=== PATIENT | female | born 1995 ===

== ENCOUNTER 2020-08-15 13:42 | Outpatient (REF) | payer SELFPAY | END 2020-08-15 13:43 | disposition home or self-care (01) | LOC: HO.SCI 13:42 | DX: Z13.89 Encounter for screening for other disorder (principal) ==

== ENCOUNTER 2020-08-23 09:34 | Outpatient (REF) | payer MEDICAID, SELFPAY ==
--- NOTE | ~2020-08-23 | CT_ITS ---
EXAMINATION: CT HEAD WITHOUT CONTRAST CLINICAL INFORMATION: Dropped on head COMPARISON: None TECHNIQUE: Contiguous axial imaging was performed from the skull base to vertex without intravenous administration of contrast. This CT examination was performed using dose optimization techniques as appropriate, variously including the following: *Automated exposure control *Adjustment of mA and/or kV according to patient size (this includes techniques or standardized protocols for targeted exams where dose is matched to indication/reason for exam; i.e. extremities or head) *Use of iterative reconstruction technique DLP: 650 mGy-cm FINDINGS: There is no evidence of acute intracranial hemorrhage or territorial infarction. No abnormal mass effect or midline shift is seen. Thomas to white matter differentiation is well preserved. No extra-axial fluid collections are identified. The ventricles are normal in size. There is no abnormal attenuation within the brain parenchyma. The osseous structures and soft tissues are normal. The mastoid air cells and visualized portions of the paranasal sinuses are well aerated. CT/CT head/brain wo con IMPRESSION: No acute intracranial pathology.
== END 2020-08-23 09:35 | disposition home or self-care (01) ==
LOC: HO.CT 09:34
PROVIDERS: PCP Registered Nurse; Visit Provider Registered Nurse
DX: F07.81 Postconcussional syndrome (principal); S09.90XA Unspecified injury of head, initial encounter
CPT/HCPCS: 70450

== ENCOUNTER 2021-12-30 14:10 | Outpatient (REF) | payer MEDICAID, SELFPAY ==
--- NOTE | ~2021-12-30 | US_ITS ---
EXAMINATION: US DIAGNOSTIC ULTRASOUND BREAST, RIGHT CLINICAL INFORMATION: 26-year-old with palpable fullness lower outer right breast. No prior breast imaging. Family history breast cancer grandmother. COMPARISON: None. TECHNIQUE: Ultrasound right breast is targeted to the area of clinical concern using grayscale imaging and color Doppler without and with harmonics. Patient is able to point to area of concern at time of imaging. FINDINGS: The palpable area corresponds to a complicated cyst 8:00 position 7 cm from nipple measuring 0.9 x 0.5 cm. There is fine internal septation. Some color flow is present at the periphery of the septation. There is no intracystic nodule or solid component. Margins are smooth. There is increased through-transmission of sound. Results are discussed with the patient at time of visit. Given the peripheral color flow in the otherwise benign internal septation, short interval six-month follow-up right breast ultrasound is recommended. US/US breast RT limited IMPRESSION: Mildly complicated cyst 8:00 position under 1 cm. ASSESSMENT: BI-RADS 3: Probably Benign RECOMMENDATION: Targeted right breast ultrasound in 6 months. This patient's information was entered into a reminder system with a target due date for their next breast imaging.
== END 2021-12-30 14:11 | disposition home or self-care (01) ==
LOC: HO.MAMMO 14:10
PROVIDERS: Visit Provider Nurse Practitioner Primary Care
DX: N63.13 Unspecified lump in the right breast, lower outer quadrant (principal)
CPT/HCPCS: 76642

== ENCOUNTER 2022-01-28 16:42 | Outpatient (REF) | payer MEDICAID, SELFPAY ==
--- NOTE | ~2022-01-28 | XR_ITS ---
EXAMINATION: XR CHEST CLINICAL INFORMATION: Productive cough and fever COMPARISON: None TECHNIQUE: 2 views of the chest were obtained. FINDINGS: No significant abnormality is noted involving the heart, lungs, mediastinum, bony thorax or soft tissues. XR/XR chest 2V IMPRESSION: No acute disease.
== END 2022-01-28 16:43 | disposition home or self-care (01) ==
LOC: HO.XRAY 16:42
PROVIDERS: Absent Provider Nurse Practitioner Primary Care; PCP Nurse Practitioner Primary Care; Visit Provider Emergency Medicine
DX: R50.9 Fever, unspecified (principal)
CPT/HCPCS: 71046

== ENCOUNTER 2022-02-06 02:04 | Emergency (ER) | payer MEDICAID, SELFPAY ==
[2022-02-06 02:16] VITALS: BP 100/61; PULSE 69; RESP 14; TEMP 36.7; O2SAT 96; BMI 20.7
== END 2022-02-06 02:45 | disposition left against medical advice (07) ==
PROVIDERS: Emergency Provider Emergency Medicine; PCP Nurse Practitioner Primary Care
DX: H57.12 Ocular pain, left eye (principal)
CPT/HCPCS: 99282

== ENCOUNTER 2022-02-16 15:44 | Emergency (ER) | payer MEDICAID, SELFPAY ==
[2022-02-16 15:48] VITALS: BP 107/54; PULSE 72; RESP 16; TEMP 36.7; O2SAT 98; BMI 21.5
--- NOTE | 2022-02-16 16:54 | ED.EYEPROB ---
HPI - Eye Problem General Chief complaint: Eye Problems Stated complaint: Styes in Both Eyes Time Seen by Provider: 02/16/22 16:41 Source: patient Mode of arrival: ambulatory Limitations: no limitations History of Present Illness HPI Narrative: patient presents emergency department for evaluation of bilateral upper eyelid stye ice. She states that it is not uncommon for her to get these. They have been present for approximately 2 weeks. One week ago she was evaluated at a walk-in clinic and was given a prescription for antibiotic eye ointment. However they continue to be present and uncomfortable. She states she has been using warm moist compresses but this has not helped. She would like and analysis to determine why she is developing styes. Review of Systems Review of Systems: Constitutional: No weight loss, fever, chills, weakness or fatigue. Skin: No rash or itching. Eye: Positive eyelid swelling, positive stye Cardiovascular: No chest pain Respiratory: No shortness of breath, cough or sputum production. Gastrointestinal: No nausea, vomiting or diarrhea. No abdominal pain Yes all other systems are reviewed and are negative PMFSH Past Medical History Attestation statement: The following information was validated with the patient. Source: old records reviewed Social History Social History Advance Directives: No Advance Directives Information Provided: No Physical Exam Vital Signs: Vital Signs: Last Vital Signs Temp 98.0 F 02/16/22 15:48 Pulse 72 02/16/22 15:48 Resp 16 02/16/22 15:48 BP 107/54 L 02/16/22 15:48 Pulse Ox 98 02/16/22 15:48 O2 Del Method 02/16/22 15:48 BMI result Body Mass Index 21.5 Appearance: Alert.?Oriented to person, place and time. No acute distress.?Normal affect. Eyes: Pupils equal, round and reactive to light. EOMi. No nystagmus. bilateral mechanical ptosis. Hordeolum With surrounding erythema to the bilateral upper eyelids? ENT: Pharynx normal.?? Neck: Normal inspection.? Neck supple.?? CVS: Heart sounds normal. Normal heart rate and rhythm.? Pulses normal.?? Respiratory: No respiratory distress.? Lung sounds clear to auscultation bilaterally?? Abdomen: Soft and non-tender. ?? Skin: Skin warm and dry.? Normal skin color.? ? Extremities: No lower extremity edema.? Neuro: Moves all extremities spontaneously. Sensation intact bilaterally. no motor deficits Ambulates with normal steady gait. Course Course Course Narrative: patient is a 26-year-old female with a past medical history of hordeolum, presenting for evaluation of persistent hordeola to bilateral upper eyelids. Physical exam not consistent with preseptal or orbital cellulitis. Extraocular movements are intact. Discussed with patient that there is no analysis as she is requesting that could be performed. Advised that individuals with underlying skin conditions such as rosacea, or seborrheic dermatitis may be more prone to them, additionally does wear eye makeup may be more prone to develop them, as the hordeola is essentially a clogged and inflammation of the gland. Advised to continue warm compresses and gentle massaging, lid scrubs, erythromycin ointment as she was prescribed. Reviewed worrisome signs and symptoms to return back to the emergency department for, including signs of preseptal or orbital cellulitis. Patient verbalized understanding, was advised to follow-up with her primary care provider/ warehouse order puller. Patient discharged home in stable condition. Discharge Plan Discharge Clinical Impression: Hordeolum Patient Disposition: Home, Self-Care Instructions: Nas (ED) Additional Instructions: As we discussed, the treatment of styes involves warm moist compresses, gentle massage of the lid, scrubbing the lid with mild soap and warm water. You can continue using the erythromycin eye ointment you were prescribed. As we discussed, these may take a few weeks to resolve. Please contact your primary care provider/ warehouse order puller to arrange for further evaluation/ treatment. Return to the emergency with any new or worsening symptoms or concerns such as fevers, chills, swelling that involves the tissue surrounding your eye, pain with movement of your eyes. Interventions: ED Discharge Assessment Last Done: 02/16/22 17:18 Discharge Date/Time: 02/16/22 17:18
--- NOTE | 2022-02-16 17:17 | PC.NURSE ---
pt left without taking discharge paperwork
== END 2022-02-16 17:18 | disposition home or self-care (01) ==
PROVIDERS: Emergency Provider Emergency Medicine; PCP Nurse Practitioner Primary Care
DX: H00.014 Hordeolum externum left upper eyelid (principal); H00.011 Hordeolum externum right upper eyelid
CPT/HCPCS: 99282

== ENCOUNTER 2022-04-17 18:14 | Emergency (ER) | payer MEDICAID, SELFPAY ==
[2022-04-17 19:02] VITALS: BP 94/57; PULSE 74; RESP 18; TEMP 36.3; O2SAT 96
== END 2022-04-17 22:37 | disposition left against medical advice (07) ==
PROVIDERS: Emergency Provider Emergency Medicine
DX: R51.9 Headache, unspecified (principal); M79.10 Myalgia, unspecified site
CPT/HCPCS: 99281

== ENCOUNTER 2022-11-04 22:01 | Emergency (ER) | payer MEDICAID, SELFPAY ==
--- NOTE | ~2022-11-04 | CT_ITS ---
EXAMINATION: CT ABDOMEN AND PELVIS WITHOUT CONTRAST CLINICAL INFORMATION: Right flank COMPARISON: None available. TECHNIQUE: Multidetector volumetric imaging was performed from the superior aspect of the liver through the pubic symphysis. Sagittal and coronal reformatted images were obtained on the technologist's workstation. This CT examination was performed using dose optimization techniques as appropriate, variously including the following: *Automated exposure control *Adjustment of mA and/or kV according to patient size (this includes techniques or standardized protocols for targeted exams where dose is matched to indication/reason for exam; i.e. extremities or head) *Use of iterative reconstruction technique DLP: 260 mGy-cm FINDINGS: LUNG BASES: The visualized lung bases are unremarkable. LIVER, GALLBLADDER, AND BILIARY TREE: The liver is normal in size, shape, and attenuation. No focal hepatic lesion or biliary ductal dilatation is present. Gallbladder unremarkable. PANCREAS: Unremarkable. SPLEEN: Unremarkable. ADRENAL GLANDS: Unremarkable. KIDNEYS AND URETERS: The kidneys are normal in size, shape, and attenuation. No hydronephrosis, hydroureter, or calculi seen. Mild right renal pelvic fullness. No perinephric abnormalities. BLADDER: Unremarkable. GASTROINTESTINAL TRACT: The small and large bowel are unremarkable. The appendix is not well seen due to posterior visceral fat and lack of intravenous contrast, however there is no evidence of appendicitis.. ABDOMINAL WALL: No significant hernia is appreciated. LYMPH NODES: Normal. VASCULAR: Unremarkable. PELVIC VISCERA: Uterus and adnexa unremarkable. OSSEOUS STRUCTURES: No acute or suspicious osseous abnormalities. CT/CT abdomen pelvis wo IV con IMPRESSION: * No urinary calculi or hydronephrosis. * Mild right renal pelvic fullness, nonspecific. Pyelitis/ureteritis could be considered. Please correlate with urinalysis. * No additional potential etiology for the patient's right flank pain is identified.
[2022-11-04 22:03] VITALS: BP 101/54; PULSE 80; RESP 18; TEMP 37.4; O2SAT 98; BMI 21.3
[2022-11-04 22:21] LABS: MANUAL DIFF FLAG NO
--- OUTSIDE RECORDS SUMMARY | 2022-11-04 22:22 | XMS_ITS | Continuity of Care Document ---
Author Name Unknown Organization [facility] Address [address] [place] [address]- Care Team Providers Care Tobacco Buyer Name Role Phone Tessa Pabon NP Primary Care Physician Encounter [facility] [place] Date(s): 04/14/22 - 05/14/22 [facility] [address] [place] [address]- Attending Physician: Admtr, Ar8 Admitting Physician: Admtr, Ar8 Referring Physician: Admtr, Ar8 Allergies, Adverse Reactions, Alerts No Known Allergies Social History Social History Type Response Smoking Status 5-9 cigarettes (betw een 1/4 to 1/2 pack)/day in last 30 days entered on: 04/14/22 Sex Patient Care team information Care Team Personnel Name: Tessa Pabon NP Position: S Outreach Member Role: PCP Address: Address: [address], [place] [address]-
--- OUTSIDE RECORDS SUMMARY | 2022-11-04 22:22 | XMS_ITS | Continuity of Care Document ---
Author Name Unknown Organization [facility] Address [address] [place] [address]- Care Team Providers Care Insurance Analyst Name Role Phone Cm SINGH, Tessa Sprague Primary Care Physician Encounter [facility] Date(s): 10/04/22 - 10/04/[address] [address]- Discharge Disposition: A-D/C Home Attending Physician: Baltazar Abdalla MD Admitting Physician: Baltazar Abdalla MD Referring Physician: Not on Staff, Referring MD Allergies, Adverse Reactions, Alerts No Known Allergies Medications predniSONE 20 mg oral tablet 2 tablet = 40 mg, By Mouth, Daily, for 5 days, # 10 tablet, 0 Refills, Acute 10/09/22 22:07:00 EDT,10/04/22 22:07:00 EDT, Tablet, [id number], Partial fill upon patient request if the prescription is for a schedule II opioid drug., 158, cm, 04... Start Date: 10/04/22 Stop Date: 10/09/22 Status: Ordered ZyrTEC 10 mg oral tablet 1 tablet = 10 mg, By Mouth, Daily, PRN Rash, # 14 tablet, 0 Refills, Maintenance, 10/04/22 22:07:00EDT, Tablet, [id number], Partial fill upon patient request if the prescription is for a schedule II opioid drug., 158, cm, 10/04/22 21:30:00 ED... Start Date: 10/04/22 Status: Ordered Problem List Condition Confirmation Course Effective Dates Status Health [facility] Informant Underweight Confirmed Active Vital Signs Most recent to oldest [Reference Range]: 1 2 3 Height 158 cm (10/04/22 10:15 PM) 158 cm (10/04/22 9:27 PM) Weight 46.1 kg (10/04/22 10:15 PM) 46.1 kg (10/04/22 9:27 PM) Oxygen Saturation [94-100 %] 96 % (10/04/22 10:15 PM) 80 % *L* (10/04/22 9:27 PM) 98 % (10/04/22 9:26 PM) Pulse Rate [55-90 bpm] 78 bpm (10/04/22 10:15 PM) 97 bpm *H* (10/04/22 9:27 PM) 80 bpm (10/04/22 9:26 PM) Body Mass Index [18.5-24.99 kg/m2] 18.47 kg/m2 *L* (10/04/22 10:15 PM) Blood Pressure [90-138/55-84 mm Hg] 102/57mm Hg (10/04/22 10:15 PM) 111/76mm Hg (10/04/22 9:27 PM) Respiratory Rate [16-30 br/min] 17 br/min (10/04/22 10:15 PM) 16 br/min (10/04/22 9:27 PM) 19 br/min (10/04/22 9:26 PM) Temperature [96.8-100.4 DegF] 97.3 DegF (10/04/22 9:27 PM) Mode of Delivery (Oxygen) Room air (10/04/22 10:15 PM) Room air (10/04/22 9:27 PM) Blood pressure sites Arm, left (10/04/22 10:15 PM) Temperature Route Temporal (10/04/22 9:27 PM) Dry Weight 46.1 kg (10/04/22 10:15 PM) 46.1 kg (10/04/22 9:27 PM) Social History Social History Type Response Smoking Status 5-9 cigarettes (betw een 1/4 to 1/2 pack)/day in last 30 days entered on: 04/14/22 Sex Note * Baltazar Abdalla MD: PERFORM, SIGN, VERIFY Event Display: Patient Education Handout Authored Date: * Baltazar Abdalla MD: PERFORM Event Display: Patient Education Leaflets Authored Date: General Allergic Reactions ?? [id number] General Allergic Reactions An allergic reaction is a set of symptoms caused by an allergen. An allergen is something that causes your immune system to react abnormally. It releases various chemicals. These include histamine. Histamine causes swelling and itching. An allergic reaction may affect the entire body. This is called a general allergic reaction.??Often symptoms affect only 1 part of the body. This is called a local allergic reaction. You are having an allergic reaction. Almost anything can cause one. Different people are allergic to different things. It's usually something that you ate or swallowed, came into contact with by getting or putting it on your skin or clothes, or something you breathed in the air. This can be very annoying and sometimes scary. Most people think of allergic reactions when they have a rash or itchy skin. Other symptoms can include: ??? Itching of the eyes, nose, and roof of the mouth ??? Runny or stuffy nose ??? Watery eyes?Sneezing or coughing? A??blocked feeling in the ear ??? Red, raised, itchy??rash called hives ??? Red and purple spots ??? Rash, redness, welts, blisters ??? Itching, burning, stinging, pain ???Dry, flaky, cracking, scaly skin Severe symptoms include: ??? Swelling of the face, lips, mouth, throat, or other parts of the body ??? Hoarse voice ??? Trouble swallowing, feeling like your throat is closing ??? Trouble breathing, wheezing ??? Nausea, vomiting, diarrhea, stomach cramps ??? Feeling faint or lightheaded, rapid heart rate Sometimes the cause of an allergic reaction may be obvious. But there are so many things that can cause a reaction that you may not be able to figure it out. The most important things to help find your allergen are to remember: ??? Where you were, such as in a forest, factory, grocery store, or paint store ??? When it started??? What you were doing at the time or just before that ??? What activities you were involved in ??? If you were exposed to anything new Below are some common causes of allergies. Some of these can cause severe general allergic reactions. Others can cause mild to moderate symptoms. But remember that almost anything can cause a reaction. You may not even be aware that you came into contact with one of these things: ??? Dust, mold, pollen ??? Plants (common ones are poison jw and poison oak, but there are many others)? Animals ??? Foods, such as shrimp, shellfish, peanuts, tree nuts, milk products, wheat, and eggs ??? Food colorings, flavorings, and additives ??? Insect bites or stings, such as bees, mosq uitoes,??fleas, and ticks ??? Medicines, such as??penicillin, sulfa medicines, aspirin, and ibuprofen. But any medicine can cause a reaction. ??? Jewelry,??such as nickel or gold. This can be new, orsomething you???ve worn for a while, including zippers and buttons. ??? Latex, such as in gloves, clothes, toys, balloons, or some tapes. Some people allergic to latex may also have problems with foods like bananas, avocados, kiwi, papaya, or chestnuts. ??? Lotions, perfumes, cosmetics, soaps, shampoos, skincare products, nail products ??? Chemicals or dyes in clothing, linen, concrete rubber, hair dyes, soaps, iodine Many viruses and common colds can cause a rash (such as hives) that is not an allergic reaction. Sometimes it's hard to tell the difference between allergies, sensitivity, or??an intolerance to something. This is especially true with food. Many things can cause diarrhea, vomiting, stomach cramps, and skin irritation. Home care The goal of treatment is to help relieve the symptoms and get you feeling better. The rash will usually fade over several days. But it can sometimes last a couple of weeks. Over the next couple of days, there may be times when it gets a little worse, and then better again. Here are some things to do: ??? If you know what you are allergic to, stay away from it. Future exposures may cause similar or sometimes worse symptoms. ??? Don't wear tight clothing and stay away from anything that heats up your skin, such as hot showers or baths, and direct sunlight. Heat will make itching worse. ??? An ice pack will relieve local areas of intense itching and redness. To make an ice pack, put ice cubes in a plastic bag that seals at the top. Wrap it in a thin, clean towel. Apply the ice pack for 5 to 10 minutes. Don???t put the ice directly on the skin because it can damage the skin. ??? Oral diphenhydramine is an [id number] antihistamine sold at pharmacies and grocery stores. Unless a prescription antihistamine was given, diphenhydramine may be used to reduce itching if large areas of theskin are involved.??It may make you sleepy. So be careful using it in the daytime or when going to school, working, or driving. Note: Don???t use??diphenhydramine??if you have glaucoma or if you havetrouble urinating because of an enlarged prostate. There are other antihistamines that won???t makeyou so sleepy. These are good choices for daytime use. Ask your healthcare provider or pharmacist for suggestions. ??? Don???t use??diphenhydramine??cream on your skin unless prescribed. It may causea worse reaction in some people. ??? To help prevent an infection, don't scratch the affected area.??Scratching??may make the reaction worse and??damage your skin. It can also lead to an infection. Always check the affected areas for signs of an infection. ??? Call your healthcare provider and ask what you can use to help decrease the itching. ??? To decrease your exposure to allergens, try the following: ?? o Use heat-steam to clean your home. o Use high-efficiency particulate (HEPA) vacuums and filters. o Stay away from food and pet triggers. o Kill any cockroaches and use pest control to keep infestations from happening again. o Clean your house often. ?? Follow-up care Follow up with your healthcare provider, or as advised. You may be referred to an pre sales technical engineer. If youhad a severe reaction today, or if you have had several mild to medium allergic reactions in the past, ask your provider about allergy testing. This can help you find out what you are allergic to. Ifyou had a severe reaction that included dizziness, fainting, or trouble breathing or swallowing, ask your provider about carrying auto-injectable epinephrine and wearing a medical alert bracelet or necklace. You can also ask if allergy immunotherapy (such as allergy shots) may be right for you. ?? Call 911 Call 911 right away if any of these occur: ??? Trouble breathing or swallowing, wheezing ??? Cool, moist, pale skin ??? Shortness of breath ??? Hoarse voice or trouble speaking ??? Confusion? Very drowsy or trouble awakening ??? Fainting or loss of consciousness ??? Rapid heart rate ??? Feeling of dizziness or weakness or a sudden drop in blood pressure ??? Feeling of doom ??? Feeling lightheaded ??? Severe nausea or vomiting,??or diarrhea ??? Seizure ??? Swelling in the face, eyelids, lips, mouth, throat, or tongue ??? Drooling ?? When to seek medical advice Call your healthcare provider or get medical care right away if any of these occur: ??? Spreading areas of itching, redness, or swelling ??? Nausea or stomach cramps or abdominal pain ??? Symptoms that continue, get worse, or happen more than once ??? Spreading areas of redness, swelling, or itching ??? Signs of infection at the affected site: o Spreading redness o Increased pain or swelling o Fluid or colored drainage from the site o Fever of 100.4??F (38??C) or higher, or as directed by your healthcare provider ?? Last Reviewed Date: 2021 ?? [id number] [employer]. All rights reserved. This information is not intended as a substitute for professional medical care. Always follow your healthcare professional's instructions. ?? Patient Care team information Care Team Personnel Name: Tessa Pabon NP Position: [facility] Outreach Member Role: PCP Address: Address: [address] [place] [id number]- Name: Tunde PINA, Garfield Yin Position: [facility] ED RN W/OE and Tasks Member Role: Patient Care Provider Name: Rm MORRISON, Baltazar Li Position: [facility] ED Medicine MD Member Role: Admitting Physician Address: Address: [address] [place] [id number]- Name: Sejal Dawn Position: [facility] ED TA [facility] Member Role: Postdoctoral Research Associate
[2022-11-04 22:29] LABS: Basophils Absolute Auto 0.1 X10*3/uL (0.0-0.2); Basophils Percent Auto 0.4 % (0-2); Eosinophils Absolute Auto 0.1 X10*3/uL (0.0-0.4); Eosinophils Percent Auto 0.6 % (0-4); Hemoglobin 12.2 g/dl (12.0-16.0); Imm Gran Abs Auto 0.04 X10*3/uL (0.00-0.03); Imm Gran Pct Auto 0.3 % (0.0-0.4); Lymphocytes Absolute Auto 0.9 X10*3/uL (1.2-4.9); Lymphocytes Percent Auto 6.5 % (20-40); Mean Corpuscular Hemoglobin 30.6 pg (27.0-33.0); Mean Corpuscular Volume 92.7 fL (80.0-98.0); Monocytes Absolute Auto 1.1 X10*3/uL (0.1-1.2); Monocytes Percent Auto 8.3 % (2-11); Neutrophils Absolute Auto 11.2 x10*3/uL (2.0-8.3); Neutrophils Percent Auto 83.9 % (45-73); Platelet Count 306 X10*3/uL (160-400); Red Blood Count 3.99 X10*6/uL (4.20-5.50); Red Cell Distribution Width 13.1 % (11.0-16.0); White Blood Count 13.4 X10*3/uL (4.8-10.8)
[2022-11-04 22:40] LABS: Alanine Aminotransferase 12 U/L (0-31); Albumin Level 4.7 g/dL (3.5-5.0); Alkaline Phosphatase 69 U/L (39-117); Anion Gap 13 (12-20); Aspartate Amino Transferase 22 U/L (5-31); Bilirubin Direct 0.2 mg/dL (0.0-0.5); Bilirubin Total 0.7 mg/dL (0.0-1.0); Blood Urea Nitrogen 8 mg/dL (9-16); Carbon Dioxide 26 mmol/L (22-29); Chloride 103 mmol/L (96-108); Creatinine Clr Calc Pharmacy 92.7; Estimated Glomerular Filt Rate > 60; Glucose Random 103 mg/dL (60-115); Lipase 37 U/L (8-78); Potassium 4.6 mmol/L (3.3-5.1); Sodium 137 mmol/L (135-145); Total Protein 7.4 g/dL (6.5-8.0)
[2022-11-04 23:33] LABS: Appearance Urine Clear; Color Urine Yellow; Glucose Urine UA Negative (Negative); Leukocyte Esterase Urine Small (1+) (Negative); Nitrite Urine Negative (Negative); PH >= 9.0 (5.0-9.0); Specific Gravity - Urine 1.015 (1.005-1.025); UMIC TRIGGER UACC YES; UPreg QC Valid YES; Urine Blood Trace (Negative); Urine Ketones Negative (Negative); Urine Pregnancy NEGATIVE (NEGATIVE); Urine Protein Trace mg/dL (Neg-Trace)
[2022-11-04 23:35] LABS: Bacteria Urine Trace (None Seen); Hyaline Casts Urine 0-2 /LPF (0-2); UACC Culture Trigger YES; WBC Urine 21-50 /HPF (0-5)
--- NOTE | 2022-11-04 23:59 | ED_ITS ---
HPI - General Adult General Chief complaint: Abdominal Pain Stated complaint: R side back pain, fever Time Seen by Provider: 11/04/22 23:50 Source: patient Mode of arrival: ambulatory Limitations: no limitations History of Present Illness HPI narrative: Patient comes to the emergency room complaining of 3 days of right-sided flank pain. Patient states that she has been having chills, nausea. Patient denies hematuria or dysuria Related Data Allergies Allergy/AdvReac Type Severity Reaction Status Date / Time No Known Allergies Allergy Verified 04/17/22 19:11 Review of Systems Review of Systems: Constitutional : No Weight loss, No Fever, No Chills, No Night Sweats, No Fatigue, No Malaise ENT/Mouth : No Hearing loss, No Ear Pain, No Nasal Congestion, No Sinus Pain, No Hoarseness, No sore throat, No Rhinorrhea, No Swallowing Difficulty Eyes: No Eye Pain, No Swelling, No Redness, No Foreign Body, No Discharge, No Vision Changes Cardiovascular : No Chest Pain, No SOB, No Dyspnea on Exertion, No Orthopnea, No Edema, No Palpitations Respiratory : No Cough, No Sputum, No Wheezing, No Smoke Exposure, No Dyspnea Gastrointestinal : No Nausea, No Vomiting, No Diarrhea, No Constipation, No abdominal Pain, No Hematochezia, No Melena Genitourinary : no irregular bleeding, No Dysuria, No Urinary Frequency, No Hematuria, No Urinary Incontinence, No Urgency, complaining of right-sided Flank Pain, No Urinary Flow Changes, No Hesitancy Musculoskeletal : No joint pain, No Myalgias, No Joint Swelling Skin : No Skin Lesions, No rash Neuro : No Weakness, No Numbness, No Paresthesias, No Loss of Consciousness, No Dizziness, No Headache Psych : No Anxiety/Panic, No Depression, No SI/HI/AH/VH, No Social Issues, Heme/Lymph: No Bruising, No Bleeding,No Lymphadenopathy Endocrine : No Polyuria, No Polydipsia, No Temperature Intolerance [facility] Social History Social History Alcohol intake: never Smoked in Last 30 Days: No Use of substances other than those prescribed or required for medical reasons: No Advance Directives: No Advance Directives Information Provided: Yes Patient : No Physical Exam ED Vital Signs: Vital Signs - 24 hr 11/04/22 22:03 11/05/22 00:07 Temperature 99.3 F 101.8 F H Pulse Rate 80 92 Respiratory Rate 18 18 Blood Pressure 101/54 L 124/63 Pulse Oximetry 98 99 Oxygen Delivery Method Room Air Room Air BMI result Body Mass Index 21.3 Const Other: Appearance: Alert. Oriented X3, seems uncomfortable Eyes: Pupils equal, round and reactive to light. ENT: Pharynx normal. Neck: Normal inspection. Neck supple. No lymph nodes noted. No crepitus CVS: Normal heart rate and rhythm. Pulses normal. Normal S1 and S2 Respiratory: No respiratory distress. Breath sounds normal. No Wheezing. No rales Abdomen: Soft and nontender. No rigidity. No distention. Positive CVA tenderness on the right Skin: Skin warm and dry. Normal skin color. Normal skin turgor. Extremities: No lower extremity edema. No Lacerations. No Rash Neuro: Oriented X 3. No motor deficit. No sensory deficit. Moving all extremities. No slurred speech. CN 2 through 12 grossly intact Psych: calm, cooperative, normal affect Medications Administered Discontinued Medications Generic Name Dose Route Start Last Admin Trade Name Freq PRN Reason Stop Dose Admin Ketorolac Tromethamine 60 mg 11/04/22 23:55 11/05/22 00:18 Ketorolac Tromethamine 60 Mg/2 Ml Vial IM 11/04/22 23:56 60 mg ONCE ONE Administration Levofloxacin 500 mg 11/04/22 23:55 11/05/22 00:19 Levofloxacin 500 Mg Tablet PO 11/04/22 23:56 500 mg ONCE ONE Administration Medical Decision Making Medical Decision Making MDM Narrative: -patient is brought blood cell count 13.4. BUN creatinine within normal limits, urinalysis positive for UTI. Patient does not have dysuria. We will obtain a CT scan to rule out ureterolithiasis. Patient was given IM Toradol and p.o. Levaquin -CT scan : Pyelonephritis, no stone -please see paper chart, we are on downtime Lab Data 11/04/22 22:16 11/04/22 22:16 Labs: Lab Results 11/04/22 11/04/22 11/04/22 Range/Units 22:16 22:16 23:24 WBC 13.4 H (4.8-10.8) X10*3/uL RBC 3.99 L (4.20-5.50) X10*6/uL Hgb 12.2 (12.0-16.0) g/dl Hct 37.0 (37.0-47.0) % MCV 92.7 (80.0-98.0) fL MCH 30.6 (27.0-33.0) pg MCHC 33.0 (31.0-35.0) g/dl RDW 13.1 (11.0-16.0) % Plt Count 306 (160-400) X10*3/uL MPV 10.0 (9.4-12.3) fL Immature Gran % (Auto) 0.3 (0.0-0.4) % Neut % (Auto) 83.9 H (45-73) % Lymph % (Auto) 6.5 L (20-40) % [place] % (Auto) 8.3 (2-11) % Eos % (Auto) 0.6 (0-4) % Baso % (Auto) 0.4 (0-2) % Lymph # (Auto) 0.9 L (1.2-4.9) X10*3/uL [place] # (Auto) 1.1 (0.1-1.2) X10*3/uL Eos # (Auto) 0.1 (0.0-0.4) X10*3/uL Baso # (Auto) 0.1 (0.0-0.2) X10*3/uL Abs Immat Gran (auto) 0.04 H (0.00-0.03) X10*3/uL Absolute Neuts (auto) 11.2 H (2.0-8.3) x10*3/uL Absolute Nucleated RBC 0.000 (0.0-0.012) X10*3/uL Nucleated RBC % (auto) 0.0 (0.0-0.2) /100WBC Sodium 137 (135-145) mmol/L Potassium 4.6 (3.3-5.1) mmol/L Chloride 103 (96-108) mmol/L Carbon Dioxide 26 (22-29) mmol/L Anion Gap 13 (12-20) BUN 8 L (9-16) mg/dL Creatinine 0.76 (0.5-1.4) mg/dL Estim Creat Clear Calc 92.7 Estimated GFR > 60 Random Glucose 103 (60-115) mg/dL Calcium 10.0 (8.4-10.2) mg/dL Total Bilirubin 0.7 (0.0-1.0) mg/dL Direct Bilirubin 0.2 (0.0-0.5) mg/dL AST 22 (5-31) U/L ALT 12 (0-31) U/L Alkaline Phosphatase 69 (39-117) U/L Total Protein 7.4 (6.5-8.0) g/dL Albumin 4.7 (3.5-5.0) g/dL Lipase 37 (8-78) U/L Urine Color Yellow Urine Appearance Clear Urine pH >= 9.0 (5.0-9.0) Ur Specific [place] 1.015 (1.005-1.025) Urine Protein Trace (Neg-Trace) mg/dL Urine Glucose (UA) Negative (Negative) mg/dL Urine Ketones Negative (Negative) mg/dL Urine Blood Trace H (Negative) Urine Nitrite Negative (Negative) Ur Leukocyte Esterase Small (1+) H (Negative) Urine RBC 6-10 H (0-2) /HPF Urine WBC 21-50 H (0-5) /HPF Ur Squamous Epith Cells 11-20 (0-2) /HPF Urine Bacteria Trace (None Seen) Hyaline Casts 0-2 (0-2) /LPF Urine Test (NEGATIVE) 11/04/22 Range/Units 23:24 WBC (4.8-10.8) X10*3/uL RBC (4.20-5.50) X10*6/uL Hgb (12.0-16.0) g/dl Hct (37.0-47.0) % MCV (80.0-98.0) fL MCH (27.0-33.0) pg MCHC (31.0-35.0) g/dl RDW (11.0-16.0) % Plt Count (160-400) X10*3/uL MPV (9.4-12.3) fL Immature Gran % (Auto) (0.0-0.4) % Neut % (Auto) (45-73) % Lymph % (Auto) (20-40) % [place] % (Auto) (2-11) % Eos % (Auto) (0-4) % Baso % (Auto) (0-2) % Lymph # (Auto) (1.2-4.9) X10*3/uL [place] # (Auto) (0.1-1.2) X10*3/uL Eos # (Auto) (0.0-0.4) X10*3/uL Baso # (Auto) (0.0-0.2) X10*3/uL Abs Immat Gran (auto) (0.00-0.03) X10*3/uL Absolute Neuts (auto) (2.0-8.3) x10*3/uL Absolute Nucleated RBC (0.0-0.012) X10*3/uL Nucleated RBC % (auto) (0.0-0.2) /100WBC Sodium (135-145) mmol/L Potassium (3.3-5.1) mmol/L Chloride (96-108) mmol/L Carbon Dioxide (22-29) mmol/L Anion Gap (12-20) BUN (9-16) mg/dL Creatinine (0.5-1.4) mg/dL Estim Creat Clear Calc Estimated GFR Random Glucose (60-115) mg/dL Calcium (8.4-10.2) mg/dL Total Bilirubin (0.0-1.0) mg/dL Direct Bilirubin (0.0-0.5) mg/dL AST (5-31) U/L ALT (0-31) U/L Alkaline Phosphatase (39-117) U/L Total Protein (6.5-8.0) g/dL Albumin (3.5-5.0) g/dL Lipase (8-78) U/L Urine Color Urine Appearance Urine pH (5.0-9.0) Ur Specific [place] (1.005-1.025) Urine Protein (Neg-Trace) mg/dL Urine Glucose (UA) (Negative) mg/dL Urine Ketones (Negative) mg/dL Urine Blood (Negative) Urine Nitrite (Negative) Ur Leukocyte Esterase (Negative) Urine RBC (0-2) /HPF Urine WBC (0-5) /HPF Ur Squamous Epith Cells (0-2) /HPF Urine Bacteria (None Seen) Hyaline Casts (0-2) /LPF Urine Test NEGATIVE (NEGATIVE) Discharge Plan Discharge Clinical Impression: Pyelonephritis Patient Disposition: Home, Self-Care
[2022-11-05 00:07] VITALS: BP 124/63; PULSE 92; RESP 18; TEMP 38.8; O2SAT 99
[2022-11-05] MEDS: Ketorolac Tromethamine 60 MG/2 ML VIAL IM (00:18)
[2022-11-05] MEDS: levoFLOXacin 500 MG TABLET PO (00:19)
--- NOTE | 2022-11-05 00:28 | PC.NURSE ---
pt medicated with toradol and levaquin , tolerated well
--- NOTE | 2022-11-05 00:31 | PC.NURSE ---
pt has oral temp 101.2. Dr. morales
== END 2022-11-05 03:57 | disposition home or self-care (01) ==
PROVIDERS: Emergency Provider Emergency Medicine; PCP Nurse Practitioner Primary Care
DX: N12 Tubulo-interstitial nephritis, not specified as acute or chronic (principal); R10.9 Unspecified abdominal pain
CPT/HCPCS: 36415; 74176; 80048; 80076; 81001; 81025; 83690; 85025; 87086; 96372; 99284; J1885

== ENCOUNTER 2023-02-03 10:32 | Outpatient (REF) | payer MEDICAID, SELFPAY ==
[2023-02-03 12:20] LABS: Syphilis Screen Nonreactive (Nonreactive)
[2023-02-03 12:54] LABS: HBS Num1 0.41 mIU/mL (0-7.99); HBc Num1 0.08 S/CO (0.00-0.79); HBsAGNum1 0.31 S/CO (0.00-0.99); HIV AB/AG Nonreactive (Nonreactive); HIV Num 1 0.06 S/CO (0.00-0.99); Hepatitis A Antibody IgM 0.19 Index (0-0.79); Hepatitis B Core Antibody Nonreactive (Nonreactive); Hepatitis B Surface Antigen Negative (Negative); ~HepC Num1 0.08 S/CO (0.00-0.79); ~Hepatitis A Antibody IgM Nonreactive (Nonreactive); ~Hepatitis B Surface Antibody NONREACTIVE (Nonreactive); ~Hepatitis C Antibody Nonreactive (Nonreactive)
[2023-02-05 22:53] LABS: TS Negative Control Passed; TS Panel A 0; TS Panel B 1; TS Positive Control Passed; TSpotTB Negative (Negative)
== END 2023-02-03 10:33 | disposition home or self-care (01) ==
LOC: HO.HHCL 10:32
PROVIDERS: Visit Provider Internal Medicine
DX: R59.1 Generalized enlarged lymph nodes (principal)
CPT/HCPCS: 36415; 86481; 86704; 86706; 86709; 86780; 86803; 87340; 87389

== ENCOUNTER 2023-03-03 14:10 | Outpatient (REF) | payer MEDICAID, SELFPAY ==
--- NOTE | ~2023-03-03 | US_ITS ---
EXAMINATION: US SOFT TISSUE HEAD/NECK CLINICAL INFORMATION: Enlarged cervical lymph nodes. COMPARISON: None available. TECHNIQUE: Linear transducer hale-scale and color Doppler examination of the neck. FINDINGS: There is a 1.6 x 0.3 cm cervical node in the right posterior neck not pathologically enlarged or otherwise abnormal morphology and a 0.7 x 0.8 x 0.4 cm left occipital node not pathologically enlarged or otherwise abnormal morphology. US/US soft tiss head and/or neck IMPRESSION: Few bilateral cervical node seen, not pathologically enlarged or otherwise abnormal and morphology.
== END 2023-03-03 14:11 | disposition home or self-care (01) ==
LOC: HO.US 14:10
PROVIDERS: PCP Registered Nurse; Visit Provider Emergency Medicine
DX: R59.1 Generalized enlarged lymph nodes (principal)
CPT/HCPCS: 76536

== ENCOUNTER 2023-03-29 11:49 | Outpatient (REF) | payer MEDICAID, SELFPAY ==
[2023-03-29 13:15] LABS: MANUAL DIFF FLAG NO
[2023-03-29 13:27] LABS: Basophils Absolute Auto 0.1 X10*3/uL (0.0-0.2); Basophils Percent Auto 0.9 % (0-2); Eosinophils Absolute Auto 0.1 X10*3/uL (0.0-0.4); Eosinophils Percent Auto 0.9 % (0-4); Hematocrit 39.2 % (37.0-47.0); Imm Gran Abs Auto 0.01 X10*3/uL (0.00-0.03); Imm Gran Pct Auto 0.2 % (0.0-0.4); Lymphocytes Absolute Auto 1.2 X10*3/uL (1.2-4.9); Lymphocytes Percent Auto 18.5 % (20-40); Mean Corpuscular HGB Conc 33.2 g/dl (31.0-35.0); Mean Corpuscular Hemoglobin 29.8 pg (27.0-33.0); Mean Corpuscular Volume 89.9 fL (80.0-98.0); Mean Platelet Volume 10.9 fL (9.4-12.3); Monocytes Absolute Auto 0.6 X10*3/uL (0.1-1.2); Monocytes Percent Auto 8.9 % (2-11); Neutrophils Absolute Auto 4.6 x10*3/uL (2.0-8.3); Neutrophils Percent Auto 70.6 % (45-73); Platelet Count 301 X10*3/uL (160-400); Red Blood Count 4.36 X10*6/uL (4.20-5.50); Red Cell Distribution Width 13.2 % (11.0-16.0); White Blood Count 6.5 X10*3/uL (4.8-10.8)
[2023-03-29 14:13] LABS: Estimated Average Glucose 88 mg/dL; Hemoglobin A1c % 4.7 % (<6.0)
[2023-03-29 14:28] LABS: Syphilis Screen Nonreactive (Nonreactive)
[2023-03-29 14:35] LABS: Alanine Aminotransferase 14 U/L (0-31); Albumin Level 4.7 g/dL (3.5-5.0); Alkaline Phosphatase 55 U/L (39-117); Anion Gap 15 (12-20); Aspartate Amino Transferase 22 U/L (5-31); Bilirubin Total 0.5 mg/dL (0.0-1.0); Blood Urea Nitrogen 9 mg/dL (9-16); Calcium 9.6 mg/dL (8.4-10.2); Carbon Dioxide 22 mmol/L (22-29); Chloride 105 mmol/L (96-108); Cholesterol 177 mg/dL (<200); Estimated Glomerular Filt Rate > 60; Glucose Random 95 mg/dL (60-115); HDL Cholesterol 78 mg/dL (>40); LDL Cholesterol Calculated 89 mg/dL (<100); Potassium 3.8 mmol/L (3.3-5.1); Sodium 138 mmol/L (135-145); Total Protein 7.4 g/dL (6.5-8.0); Triglycerides 52 mg/dL (<150)
[2023-03-29 14:54] LABS: TSH reflex Free T4 0.83 uIU/mL (0.32-4.0)
[2023-03-29 15:18] LABS: CT PCR NOT DETECTED (Not Detect.); NG PCR NOT DETECTED (Not Detect.)
[2023-03-30 08:00] LABS: HIV AB/AG Nonreactive (Nonreactive); HIV Num 1 0.05 S/CO (0.00-0.99)
[2023-04-02 01:34] LABS: VITAMIN D (1,25 OH) D3 49 pg/mL; Vit D (1,25-Dihydroxy) Total 49 pg/mL (18-72); Vitamin D (1,25 OH) D2 <8 pg/mL
== END 2023-03-29 11:50 | disposition home or self-care (01) ==
LOC: HO.HHCL 11:49
PROVIDERS: Visit Provider Student in an Organized Health Care Education/Training Program
DX: Z00.00 Encounter for general adult medical examination without abnormal findings (principal); Z11.3 Encounter for screening for infections with a predominantly sexual mode of transmission
CPT/HCPCS: 0353U; 80053; 80061; 82652; 83036; 84443; 85025; 86780; 87389

== ENCOUNTER → 2023-04-12 11:30 | Outpatient (BNV) | payer MEDICAID, SELFPAY | PROVIDERS: PCP Student in an Organized Health Care Education/Training Program; Visit Provider Radiology Diagnostic Radiology | DX: N63.13 Unspecified lump in the right breast, lower outer quadrant (principal) | CPT/HCPCS: 76642 ==

== ENCOUNTER 2023-04-12 11:59 | Outpatient (REF) | payer MEDICAID, SELFPAY ==
--- NOTE | ~2023-04-12 | US_ITS ---
EXAMINATION: US DIAGNOSTIC ULTRASOUND BREAST, RIGHT CLINICAL INFORMATION: Follow-up minimally complicated cyst right breast 8:00 axis, 7 cm from the nipple.. COMPARISON: 12/30/2021. TECHNIQUE: Ultrasound of the breast is performed with real-time hale scale imaging and color Doppler. FINDINGS: There is no focal suspicious finding. There is no solid mass, architectural abnormality, duct ectasia, or edema in the soft tissue planes. The previously seen oval cyst at the 8:00 axis with a single septation is no longer evident and appears to have resolved. Results were provided to the patient at time of visit by the technologist. US/US breast RT limited mamm only IMPRESSION: No persistent abnormality. The previously seen minimally complicated cyst at 8:00 axis right breast has resolved. No further follow-up required. ASSESSMENT: BI-RADS 1: Negative RECOMMENDATION: Routine annual mammography screening at age 41.
== END 2023-04-12 12:00 | disposition home or self-care (01) ==
LOC: HO.MAMMO 11:59
PROVIDERS: PCP Student in an Organized Health Care Education/Training Program; Visit Provider Student in an Organized Health Care Education/Training Program
DX: N63.13 Unspecified lump in the right breast, lower outer quadrant (principal)
CPT/HCPCS: 76642

== ENCOUNTER 2023-12-02 16:53 | Emergency (ER) | payer MEDICAID, SELFPAY ==
[2023-12-02 17:17] VITALS: BP 99/59; PULSE 80; RESP 16; TEMP 36.9; O2SAT 98; BMI 18.3
--- NOTE | 2023-12-02 17:17 | ED.BACK ---
HPI - Back Pain/Injury General Chief Complaint: Back Pain/Injury Stated Complaint: sciatica flare up, needs a note Time Seen by Provider: 12/02/23 17:20 Source: patient, RN notes reviewed and old records reviewed Mode of arrival: ambulatory History of Present Illness ED Provider: Lakisha Hollis PA-C HPI Narrative: 28-year-old female with a past medical history of sciatica presenting to the ED complaining of sciatica flare x today, and requesting work note. Admits pain has improved since onset. Reports bilateral low back pain with radiation down left lower extremity. Denies injury, trauma, fall, numbness/tingling, weakness, incontinence/retention. Reports pain is similar to prior sciatica flares in the past. Takes Tylenol/Motrin with relief MD elicited complaint: back pain Related Data Previous Rx's ?Medication ?Instructions ?Recorded acetaminophen 500 mg tablet 500 mg PO Q6H PRN fever or pain 12/02/23 (Tylenol Extra Strength) #14 tabs cyclobenzaprine 5 mg tablet 5 mg PO Q8H PRN pain (scale score 12/02/23 7-10) 5 days #14 tabs lidocaine 5 % topical patch 1 patch topical DAILY PRN pain #30 12/02/23 (Lidoderm) ea naproxen 500 mg tablet 500 mg PO BID PRN pain 10 days #20 12/02/23 tabs Allergies Allergy/AdvReac Type Severity Reaction Status Date / Time No Known Allergies Allergy Verified 12/02/23 17:19 Review of Systems Review of Systems: Constitutional: No Fever, No Chills ENT/Mouth: No Ear Pain, No Nasal Congestion, No sore throat, No Rhinorrhea, No Swallowing Difficulty Cardiovascular: No Chest Pain, No SOB Respiratory: No Cough Gastrointestinal: No Nausea, No Vomiting, No Diarrhea, No Constipation, No Abdominal pain Genitourinary: No Dysuria, No Urinary Incontinence/retention, No Flank Pain Musculoskeletal: +back pain, No Myalgias Skin: No Skin Lesions, No rash Neuro: No Weakness, No Numbness, No Paresthesias Yes all other systems are reviewed and are negative Constitutional: Constitutional: Reports as per HPI Neurologic: Denies Sensory deficit (Neuro) PMFSH Past Medical History Attestation statement: The following information was validated with the patient. Source: old records reviewed Social History Social History Alcohol intake: never Physical Exam Vital Signs: Vital Signs: Last Vital Signs Temp 98.5 F 12/02/23 17:17 Pulse 80 12/02/23 17:17 Resp 16 12/02/23 17:17 BP 99/59 L 12/02/23 17:17 Pulse Ox 98 12/02/23 17:17 O2 Del Method Room Air 12/02/23 17:17 BMI result Body Mass Index 18.3 Const: General: cooperative, healthy appearing and no acute distress Orientation/consciousness: patient oriented x3 Limitations: no limitations HEENT: Head: Yes normal to inspection and Yes atraumatic Ears: hearing grossly normal bilaterally General nose exam: Normal external nose present Face and sinus: Yes normal facial exam Eyes: General: appearance normal, both eyes and all related structures EOM: EOMs intact bilaterally Neck: Neck: Yes normal visual inspection and Yes no meningeal signs Resp: Effort & Inspection: normal respiratory effort and no respiratory distress Cardio: Rate: regular rate GI: Inspection: Yes normal to inspection Palpation (GI): Soft to palpation, nontender, no guarding and not rigid : General: Yes no CVA tenderness Back/Spine/Pelvis: Other: No midline cervical/thoracic/lumbar spinous tenderness/step-off or deformity. Back pain not reproducible. No rash. No erythema Back: no CVA tenderness Skin: Rashes: no rashes Wounds: no wounds Neuro: Other: Strength intact throughout. No saddle anesthesia. Sensation intact to light touch. Neurovascular intact distally General: patient oriented x3, gait normal, tone normal, moves all extremities and no meningeal signs Cranial nerves: Yes CN's II-XII intact bilaterally Gait exam (Neuro): Normal gait present Motor exam (neuro): 5/5 motor strength present throughout Sensory Exam: No Sensory deficit (Neuro) Extrem: General: Yes normal to inspection Medical Decision Making Medical Decision Making MDM Narrative: 28-year-old female with a past medical history of sciatica presenting to the ED complaining of sciatica flare x today, and requesting work note. On exam vital signs stable, NAD, nontoxic appearing, no midline spinous tenderness throughout or red flag symptoms, ambulating with steady gait. Concern for sciatica/muscle spasm. Low suspicion for UTI/pyelo, cauda equina/cord compression, epidural abscess or fracture Plan: Pain control, PCP follow-up Please refer to course for remaining clinical decision making, interpretation of labs/imaging results, and discussions with consultants and/or family members. Results discussed with patient including worrisome signs and symptoms and strict return precautions, and when to return to the emergency department. They verbalized understanding and feel safe for discharge at this time. Differential Diagnosis Differential Diagnoses: The differential diagnosis associated with the presentation includes As above External Record Review External record reviewed: Inpatient record, Office record, Outpatient record, Prior outpatient labs, Prior outpatient radiology, Primary care record and Outside ED record Tests considered The following testing was considered but not selected: As above Prescription Management I considered prescription management with: Pain Medication Discharge Plan Discharge Clinical Impression: Sciatica Patient Disposition: Home, Self-Care Instructions: Sciatica (ED) Additional Instructions: Your pain is likely musculoskeletal Flexeril is a muscle relaxer, take at night as it makes you drowsy, do not drive, drink alcohol, or operate machinery while taking it Naproxen as an anti-inflammatory / pain medication, take with food Lidoderm patches are numbing patches, apply to painful area In addition take Tylenol at home If symptoms persist or worsen, pain becomes unbearable, you developed urinary retention or incontinence, or weakness return to the ED Prescriptions: New acetaminophen [Tylenol Extra Strength] 500 mg tablet 500 mg PO Q6H PRN (Reason: fever or pain) Qty: 14 0RF naproxen 500 mg tablet 500 mg PO BID PRN (Reason: pain) 10 Days Qty: 20 0RF cyclobenzaprine 5 mg tablet 5 mg PO Q8H PRN (Reason: pain (scale score 7-10)) 5 Days Qty: 14 0RF lidocaine [Lidoderm] 5 % adhesive patch,medicated 1 patch topical DAILY MDD remove after 12 hours PRN (Reason: pain) Qty: 30 0RF Rx Instructions: leave on most painful area for up to 12 hrs Referrals: Rina Ferrell MD [Primary Care Provider] - 3 days Stand Alone Forms: Work/School Release Print Language: Filipino
--- NOTE | 2023-12-02 17:21 | PC.NURSE ---
Nancy by Sydnie, cleared for sd home.
[2023-12-02 17:29] VITALS: BP 00/00; PULSE 0; RESP 0; TEMP -17.7; TEMP 0; O2SAT 0
== END 2023-12-02 17:30 | disposition home or self-care (01) ==
PROVIDERS: Emergency Provider Internal Medicine; PCP Student in an Organized Health Care Education/Training Program
DX: M54.42 Lumbago with sciatica, left side (principal)
CPT/HCPCS: 99282; 99283

== ENCOUNTER 2024-02-06 20:50 | Emergency (ER) | payer OTHER, SELFPAY ==
--- NOTE | 2024-02-06 | ECG_ITS ---
Test Reason : CHEST PAIN Blood Pressure : / mmHG Vent. Rate : 064 BPM Atrial Rate : 064 BPM P-R Int : 130 ms QRS Dur : 070 ms QT Int : 398 ms P-R-T Axes : 074 070 060 degrees QTc Int : 410 ms Normal sinus rhythm Normal ECG No previous ECGs available Referred By: Generic ED Physician Electronically Signed By:DEBORAH TRAN
[2024-02-06 21:06] VITALS: BMI 18.5
[2024-02-06 21:15] VITALS: BP 101/68; PULSE 64; RESP 16; TEMP 36.6; O2SAT 98
[2024-02-06 21:19] LABS: MANUAL DIFF FLAG NO
[2024-02-06 21:28] LABS: Basophils Absolute Auto 0.1 X10*3/uL (0.0-0.2); Basophils Percent Auto 0.6 % (0-2); Eosinophils Absolute Auto 0.2 X10*3/uL (0.0-0.4); Eosinophils Percent Auto 1.6 % (0-4); Hematocrit 36.9 % (37.0-47.0); Hemoglobin 12.7 g/dl (12.0-16.0); Imm Gran Abs Auto 0.03 X10*3/uL (0.00-0.03); Imm Gran Pct Auto 0.3 % (0.0-0.4); Lymphocytes Absolute Auto 1.7 X10*3/uL (1.2-4.9); Lymphocytes Percent Auto 18.6 % (20-40); Mean Corpuscular HGB Conc 34.4 g/dl (31.0-35.0); Mean Corpuscular Hemoglobin 30.2 pg (27.0-33.0); Mean Corpuscular Volume 87.9 fL (80.0-98.0); Mean Platelet Volume 9.6 fL (9.4-12.3); Monocytes Absolute Auto 0.8 X10*3/uL (0.1-1.2); Monocytes Percent Auto 8.7 % (2-11); Neutrophils Absolute Auto 6.5 x10*3/uL (2.0-8.3); Neutrophils Percent Auto 70.2 % (45-73); Platelet Count 312 X10*3/uL (160-400); Red Cell Distribution Width 11.9 % (11.0-16.0); White Blood Count 9.3 X10*3/uL (4.8-10.8)
[2024-02-06 21:35] LABS: IDNOW Serial# 08D9AD1C; Strep A Nucleic Acid Negative (Negative)
[2024-02-06 21:37] LABS: Alanine Aminotransferase 15 U/L (0-31); Albumin Level 4.5 g/dL (3.5-5.0); Alkaline Phosphatase 66 U/L (39-117); Anion Gap 11 (12-20); Aspartate Amino Transferase 21 U/L (5-31); Bilirubin Total 0.2 mg/dL (0.0-1.0); Blood Urea Nitrogen 12 mg/dL (9-16); Calcium 9.5 mg/dL (8.4-10.2); Carbon Dioxide 25 mmol/L (22-29); Chloride 106 mmol/L (96-108); Creatinine Clr Calc Pharmacy 76.3; Estimated Glomerular Filt Rate > 60; Glucose Random 100 mg/dL (60-115); Lipase 34 U/L (8-78); Potassium 3.9 mmol/L (3.3-5.1); Sodium 138 mmol/L (135-145)
[2024-02-06 22:00] LABS: Influenza A PCR NEGATIVE (Negative); Influenza B PCR NEGATIVE (Negative); Resp Syncy Virus RNA Qual PCR NEGATIVE (Negative); SARS COV2 PCR INHOUSE NEGATIVE (Negative)
== END 2024-02-07 00:44 | disposition left against medical advice (07) ==
LOC: HO.ED 02-07 00:37
PROVIDERS: Emergency Provider Emergency Medicine
DX: R07.89 Other chest pain (principal); R05.9 Cough, unspecified; J02.9 Acute pharyngitis, unspecified; Z03.818 Encounter for observation for suspected exposure to other biological agents ruled out; Z79.899 Other long term (current) drug therapy
CPT/HCPCS: 0241U; 80053; 83690; 85025; 87651; 93005; 99281; 99283

== ENCOUNTER 2024-02-15 22:39 | Emergency (ER) | payer OTHER, SELFPAY ==
--- NOTE | ~2024-02-15 | XR_ITS ---
EXAMINATION: XR CHEST CLINICAL INFORMATION: Cough. COMPARISON: Chest radiograph 01/28/2022. TECHNIQUE: 2 views of the chest were obtained. FINDINGS: Normal appearance of the cardiomediastinal silhouette. No focal consolidation, pleural effusion or pneumothorax. No acute osseous findings. Visualized upper abdomen is within normal limits. XR/XR chest 2V IMPRESSION: No acute cardiopulmonary findings. Electronically signed by: Aneta Braun MD 02/16/2024 12:09 AM EDT
[2024-02-15 22:42] VITALS: BP 113/81; PULSE 80; RESP 16; TEMP 36.9; O2SAT 99; BMI 18.6
[2024-02-15 23:32] LABS: Influenza A PCR NEGATIVE (Negative); Influenza B PCR NEGATIVE (Negative); Resp Syncy Virus RNA Qual PCR NEGATIVE (Negative); SARS COV2 PCR INHOUSE NEGATIVE (Negative)
--- NOTE | 2024-02-15 23:58 | PC.NURSE ---
Pt ambulatory to main ED from , assumed care of pt at this time. MD to bedside for primary eval.
--- NOTE | 2024-02-16 00:05 | ED_ITS ---
HPI - URI/Sore Throat General Chief Complaint: Upper Respiratory Symptoms Stated Complaint: Cough for 2-3 weeks Time Seen by Provider: 02/15/24 23:29 Source: patient and family Mode of arrival: ambulatory Limitations: no limitations History of Present Illness ED Provider: Dr. Corrales HPI Narrative: patient with 3 weeks of cough, not getting better, no fever MD elicited complaint: cough Onset (ago): week(s) Related Data Previous Rx's ?Medication ?Instructions ?Recorded acetaminophen 500 mg tablet 500 mg PO Q6H PRN fever or pain 12/02/23 (Tylenol Extra Strength) #14 tabs cyclobenzaprine 5 mg tablet 5 mg PO Q8H PRN pain (scale score 12/02/23 7-10) 5 days #14 tabs lidocaine 5 % topical patch 1 patch topical DAILY PRN pain #30 12/02/23 (Lidoderm) ea naproxen 500 mg tablet 500 mg PO BID PRN pain 10 days #20 12/02/23 tabs yxaabrhuvyade-KJ-vvwgbrxitps 5 10 ml PO Q4H PRN cough #473 mL 02/16/24 mg-10 mg-100 mg/5 mL oral liquid Allergies Allergy/AdvReac Type Severity Reaction Status Date / Time No Known Allergies Allergy Verified 02/15/24 22:46 Review of Systems Review of Systems: Yes all other systems are reviewed and are negative Neurologic: Denies Sensory deficit (Neuro) [facility] Social History Social History Alcohol intake: never Advance Directives: No Advance Directives Information Provided: No Do you have a plan to hurt others: No Plan Physical Exam Vital Signs: Vital Signs: Last Vital Signs Temp 98.5 F 02/15/24 22:42 Pulse 80 02/15/24 22:42 Resp 16 02/15/24 22:42 BP 113/81 02/15/24 22:42 Pulse Ox 99 02/15/24 22:42 O2 Del Method Room Air 02/15/24 22:42 BMI result Body Mass Index 18.6 Const: General: healthy appearing Nutritional Appearance: average body habitus Orientation/consciousness: oriented to person and patient oriented x3 Limitations: no limitations HEENT: Head: Yes normal to inspection Ears: external ears normal General nose exam: Normal external nose present Mouth: Normal oral and palatal mucosa present and oropharynx normal Throat: Yes posterior oropharynx normal Eyes: General: appearance normal, both eyes and all related structures Neck: Other: supple Neck: Yes normal visual inspection Chest: Chest palpation & inspection: normal inspection of the chest Resp: Auscultation: clear to auscultation bilaterally Cardio: Jugular venous distension: no JVD Rate: regular rate Rhythm: regular rhythm Heart sounds: S1 normal heart sound present and S2 normal heart sound present GI: Inspection: Yes normal to inspection Palpation (GI): Soft to palpation, nontender and No hepatosplenomegaly present Auscultation: normal bowel sounds : General: Yes no CVA tenderness Back/Spine/Pelvis: Back: no CVA tenderness Skin: General skin exam: no rashes or lesions noted Neuro: General: oriented to person and patient oriented x3 Cranial nerves: Yes CN's II-XII intact bilaterally Motor exam (neuro): 5/5 motor strength present throughout Sensory Exam: No Sensory deficit (Neuro) Extrem: General: Yes normal to inspection Psych: Appearance: grossly normal Course Reevaluation(s) Reevaluation #1: no evidence of fever, hypoxia, CXR no infiltrate will place on cough medicine Time: 00:06 Medical Decision Making Differential Diagnosis Differential Diagnoses: The differential diagnosis associated with the presentation includes (viral URI, COVID, flu, rsv, pneumonia) Admission/Observation Consideration of admission/observation: Escalation of care including admission/observation considered (upon arrival patient considered for admission) Lab Data Labs: Lab Results 02/15/24 Range/Units 22:50 Influenza Type A (PCR) NEGATIVE (Negative) Influenza Type B (PCR) NEGATIVE (Negative) RSV RNA Qual (PCR) NEGATIVE (Negative) SARS-CoV-2 RNA (RT-PCR) NEGATIVE (Negative) Independent Interpretation I performed an independent interpretation of an: Plain X-Ray (no infiltrate) Independent Historian Clinical information obtained from an independent historian. History obtained from or confirmed by: Friend Prescription Management I considered prescription management with: Antibiotic (no evidence of infiltrate will not place on abx) Discharge Plan Discharge Clinical Impression: Viral infection, Upper respiratory infection Patient Disposition: Home, Self-Care Instructions: Upper Respiratory Infection (ED), Acute Bronchitis (ED) Prescriptions: New bboaeertgivba-TY-jrfbqgllhxe 5-10-100 mg/5 mL liquid 10 ml PO Q4H PRN (Reason: cough) Qty: 473 0RF No Action acetaminophen [Tylenol Extra Strength] 500 mg tablet 500 mg PO Q6H PRN (Reason: fever or pain) Qty: 14 0RF naproxen 500 mg tablet 500 mg PO BID PRN (Reason: pain) 10 Days Qty: 20 0RF cyclobenzaprine 5 mg tablet 5 mg PO Q8H PRN (Reason: pain (scale score 7-10)) 5 Days Qty: 14 0RF lidocaine [Lidoderm] 5 % adhesive patch,medicated 1 patch topical DAILY MDD remove after 12 hours PRN (Reason: pain) Qty: 30 0RF Rx Instructions: leave on most painful area for up to 12 hrs Referrals: Rina Ferrell MD [Primary Care Provider] - 5 days Print Language: Lithuanian
[2024-02-16 00:13] VITALS: BP 103/70; PULSE 80; RESP 20; TEMP 36.9; O2SAT 100
[2024-02-16] MEDS: guaiFEN/Codeine SF 200/20/10ML 10 ML LIQUID PO (00:24)
[2024-02-16 00:25] VITALS: BP 103/70; PULSE 80; RESP 20; TEMP 36.9; O2SAT 100
== END 2024-02-16 00:26 | disposition home or self-care (01) ==
PROVIDERS: Emergency Provider Emergency Medicine; PCP Student in an Organized Health Care Education/Training Program
DX: B34.9 Viral infection, unspecified (principal); J06.9 Acute upper respiratory infection, unspecified; R05.9 Cough, unspecified; Z03.818 Encounter for observation for suspected exposure to other biological agents ruled out
CPT/HCPCS: 0241U; 71046; 99283

== ENCOUNTER 2024-05-29 16:05 | Outpatient (REF) | payer OTHER, SELFPAY | END 2024-05-29 16:06 | disposition home or self-care (01) | LOC: HO.US 16:05 | PROVIDERS: PCP Student in an Organized Health Care Education/Training Program; Visit Provider Student in an Organized Health Care Education/Training Program | DX: Z13.89 Encounter for screening for other disorder (principal) ==

== ENCOUNTER 2024-08-20 19:18 | Emergency (ER) | payer OTHER, SELFPAY ==
--- NOTE | ~2024-08-20 | XR_ITS ---
CLINICAL HISTORY: Coughing Chest X-ray, 1 View COMPARISON: CR/AR/SR - XR CHEST 2V - 02/15/24 22:59 EDT FINDINGS: No consolidation. No pleural effusion. No pneumothorax. No cardiomegaly. No acute fracture. IMPRESSION: No acute findings. This document has been electronically signed by: Hugh Valle MD on 08/20/2024 20:58:45
[2024-08-20 19:45] VITALS: BP 112/71; PULSE 90; RESP 16; TEMP 36.8; O2SAT 98; BMI 20.2
--- NOTE | 2024-08-20 19:50 | ED.GENADULT ---
HPI - General Adult General Chief complaint: Upper Respiratory Symptoms Stated complaint: Chest pain /vomitting gf was here lst wk same symp Time Seen by Provider: 08/20/24 22:31 Source: patient Mode of arrival: ambulatory Limitations: no limitations History of Present Illness ED Provider: HPI narrative: patient is complaining of cough nasal congestion body aches fever chills since yesterday feels exhausted cough is mostly dry no other family member sick patient noted to be positive for influenza A Related Data Previous Rx's ?Medication ?Instructions ?Recorded acetaminophen 500 mg tablet 500 mg PO Q6H PRN fever or pain 12/02/23 (Tylenol Extra Strength) #14 tabs cyclobenzaprine 5 mg tablet 5 mg PO Q8H PRN pain (scale score 12/02/23 7-10) 5 days #14 tabs lidocaine 5 % topical patch 1 patch topical DAILY PRN pain #30 12/02/23 (Lidoderm) ea naproxen 500 mg tablet 500 mg PO BID PRN pain 10 days #20 12/02/23 tabs aastahirpfyyh-YU-gsoykiemvzz 5 10 ml PO Q4H PRN cough #473 mL 02/16/24 mg-10 mg-100 mg/5 mL oral liquid codeine 10 mg-guaifenesin 100 mg/5 10 ml PO Q6H PRN cough #237 mL 08/20/24 mL oral liquid oseltamivir 75 mg capsule (Tamiflu) 75 mg PO BID 5 days #10 caps 08/20/24 Allergies Allergy/AdvReac Type Severity Reaction Status Date / Time No Known Allergies Allergy Verified 08/20/24 19:46 Review of Systems Review of Systems: Yes all other systems are reviewed and are negative [facility] Social History Social History Alcohol intake: never Advance Directives: No Advance Directives Information Provided: No Physical Exam ED Vital Signs: Vital Signs - 24 hr 08/20/24 22:58 08/20/24 23:04 Temperature 99.4 F 99.4 F Pulse Rate 90 90 Respiratory Rate 18 18 Blood Pressure 129/68 129/68 Pulse Oximetry 98 98 Oxygen Delivery Method Room Air Room Air BMI result Body Mass Index 20.2 Appearance: Alert. Oriented X3. No acute distress. Eyes: no pallor or icterus ENT: Pharynx normal. Oral Mucosa moistClear rhinorrhea tympanic membrane intact Neck: Normal inspection. Neck supple. CVS: Normal heart rate and rhythm. Pulses normal. Respiratory: No respiratory distress. Equal air entry bilateral, no wheezing/rales/rhonchi Abd: soft, not tender Skin: Skin warm and dry. Normal skin color. Normal skin turgor. Extremities: No lower extremity edema, no calf tenderness Neuro: Oriented X 3. Course Course Course Narrative: NASH; 28-year-old female presents to the ED for coughing for 2 weeks with phlegm, nasal congestion and some vomiting. Patient states partner was sick 1st. SARs strep ordered. Medications Administered Discontinued Medications Generic Name Dose Route Start Last Admin Trade Name Freq PRN Reason Stop Dose Admin Guaifenesin/Codeine Phosphate 10 ml 08/20/24 22:41 08/20/24 22:59 Guaifen/Codeine Sf 200/20/10ml 10 Ml Liquid PO 08/20/24 22:42 10 ml ONCE ONE Administration Oseltamivir Phosphate 75 mg 08/20/24 22:41 08/20/24 22:59 Oseltamivir Phosphate 75 Mg Capsule PO 08/20/24 22:42 75 mg ONCE ONE Administration Medical Decision Making Medical Decision Making [facility] Narrative: patient with influenza a chest x-ray negative vitals are stable discharge patient home on supportive treatment with Tamiflu and cough meds Lab Data [facility] Lab Attestation statement: I reviewed the patient's lab results. Labs: Lab Results 08/20/24 Range/Units 19:54 Influenza Type A (PCR) POSITIVE A (Negative) Influenza Type B (PCR) NEGATIVE (Negative) RSV RNA Qual (PCR) NEGATIVE (Negative) SARS-CoV-2 RNA (RT-PCR) NEGATIVE (Negative) S. pyogenes GrpA GABRIELLE Negative (Negative) Independent Interpretation I performed an independent interpretation of an: Plain X-Ray Interpretation: NAD Discharge Plan Discharge Clinical Impression: Influenza Patient Disposition: Home, Self-Care Instructions: Influenza (ED) Additional Instructions: You have influenza A Social distancing as advised Tylenol/Motrin for pain and fever Tamiflu and cough syrup as prescribed Prescriptions: New oseltamivir [Tamiflu] 75 mg capsule 75 mg PO BID 5 Days Qty: 10 0RF codeine-guaifenesin 10-100 mg/5 mL liquid 10 ml PO Q6H PRN (Reason: cough) Qty: 237 0RF No Action qiewficwjrgrg-OH-fjhonbhrwsn 5-10-100 mg/5 mL liquid 10 ml PO Q4H PRN (Reason: cough) Qty: 473 0RF acetaminophen [Tylenol Extra Strength] 500 mg tablet 500 mg PO Q6H PRN (Reason: fever or pain) Qty: 14 0RF naproxen 500 mg tablet 500 mg PO BID PRN (Reason: pain) 10 Days Qty: 20 0RF cyclobenzaprine 5 mg tablet 5 mg PO Q8H PRN (Reason: pain (scale score 7-10)) 5 Days Qty: 14 0RF lidocaine [Lidoderm] 5 % adhesive patch,medicated 1 patch topical DAILY MDD remove after 12 hours PRN (Reason: pain) Qty: 30 0RF Rx Instructions: leave on most painful area for up to 12 hrs Stand Alone Forms: Work/School Release Interventions: ED Discharge Assessment Last Done: 08/20/24 23:04 Discharge Date/Time: 08/20/24 23:05 Print Language: Samoan
[2024-08-20 20:27] LABS: IDNOW Serial# 58CA691E; Strep A Nucleic Acid Negative (Negative)
[2024-08-20 20:53] LABS: Influenza A PCR POSITIVE (Negative); Influenza B PCR NEGATIVE (Negative); Resp Syncy Virus RNA Qual PCR NEGATIVE (Negative); SARS COV2 PCR INHOUSE NEGATIVE (Negative)
[2024-08-20 22:58] VITALS: BP 129/68; PULSE 90; RESP 18; TEMP 37.4; O2SAT 98
[2024-08-20] MEDS: guaiFEN/Codeine SF 200/20/10ML 10 ML LIQUID PO (22:59)
[2024-08-20] MEDS: Oseltamivir Phosphate 75 MG CAPSULE PO (22:59)
[2024-08-20 23:04] VITALS: BP 129/68; PULSE 90; RESP 18; TEMP 37.4; O2SAT 98
== END 2024-08-20 23:05 | disposition home or self-care (01) ==
PROVIDERS: Physician Assistant; Emergency Provider Internal Medicine; PCP Student in an Organized Health Care Education/Training Program
DX: J10.1 Influenza due to other identified influenza virus with other respiratory manifestations (principal); R07.89 Other chest pain; R11.10 Vomiting, unspecified; R05.9 Cough, unspecified; M79.10 Myalgia, unspecified site; Z03.818 Encounter for observation for suspected exposure to other biological agents ruled out
CPT/HCPCS: 0241U; 71045; 87651; 99282; 99283; 99284

== ENCOUNTER → 2024-08-20 19:49 | Outpatient (BNV) | payer OTHER, SELFPAY | PROVIDERS: PCP Student in an Organized Health Care Education/Training Program; Visit Provider Radiology Diagnostic Radiology | DX: R05.9 Cough, unspecified (principal) | CPT/HCPCS: 71045 ==

== ENCOUNTER 2024-11-29 11:54 | Outpatient (REF) | payer OTHER, SELFPAY ==
[2024-11-29 13:44] LABS: Hematocrit 39.4 % (37.0-47.0); Hemoglobin 13.2 g/dl (12.0-16.0); Mean Corpuscular HGB Conc 33.5 g/dl (31.0-35.0); Mean Corpuscular Hemoglobin 29.7 pg (27.0-33.0); Mean Corpuscular Volume 88.7 fL (80.0-98.0); Mean Platelet Volume 10.4 fL (9.4-12.3); Platelet Count 323 X10*3/uL (160-400); Red Blood Count 4.44 X10*6/uL (4.20-5.50); Red Cell Distribution Width 13.3 % (11.0-16.0); White Blood Count 7.6 X10*3/uL (4.8-10.8)
[2024-11-29 13:49] LABS: Estimated Average Glucose 97 mg/dL; Hemoglobin A1C 106.9998 umol/L; Total Hemoglobin (HGBA1C) 3454.8119 umol/L
--- OUTSIDE RECORDS SUMMARY | 2024-11-29 13:53 | XMS_ITS | Encounter Summary ---
Author Organization [employer] Address [address] [place] [address] Care Team Providers Care Regional Project Manager Name Role Phone Rina Ferrell MD Primary Care Pro vider Carol Rich RN Unavailable [phone] Daniel De Leon Unavailable Encounter Details Date Type Department Care Team (Late st Contact Info) Description 04/14/2023 Abstract [facility] MEDICINE [address] [place] [address] Rina Ferrell MD [address] [place] [address] Social History Tobacco Use Types Packs/Day Years Used Date Smoking Tobacco: Some Days Cigarettes Passive Smoke Exposure: Never Smokeless Tobacco: Never Comments:Started smoking 19 y of age ,smokes socially on weekends 5 cigarettes a day Alcohol Use Standard Drinks/Week Comments Never 0 (1 standard drink = 0.6 oz pur e alcohol) Socially Depression Answer Date Recorded Patient Health Questionnaire-9 Score 1 03/25/2023 Housing Stability Answer Date Recorded What is your housing situation today? I have joann louis 03/29/[address] you li ve. Do you have problems with any of the following? None of the above 03/29/2023 Food Insecurity Answer Date Recorded Within the past 12 months, y ou worried that your food would run out before you got money to buy more: Never True 03/29/2023 Within the past 12 months,th e food you bought just didn't last and you didn't have enough money to get more: Never True Transportation Answer Date Recorded In the past 12 months, has l ack of transportation kept you from medical appts, meetings, work or from getting things needed for daily living? No 03/29/2023 Utilities Answer Date Recorded In the past 12 months, has t he electric, gas, oil or water company threatened to shut off services in your home? No 03/29/2023 Depression Answer Date Recorded Patient Health Questionnaire-2 Score 0 03/25/2023 Comments Unknown Sex and Gender Information Value Date Recorded Sex Assigned at Female 03/01/2023 2:44 PM EDT Legal Sex Other 04/13/2022 10:37 AM EDT Gender Identity Female 01/27/2023 11:54 AM EDT Sexual Orientation Lesbian 03/25/2023 2: 02 PM EDT Sexual Orientation Lesbian or James 03/25/2023 2: 02 PM EDT documented as of this encounter Plan of Treatment Not on file documented as of this encounter Procedures Procedure Name Priority Date/Time Associated Diagnosis Comments MAMMOGRAPHY Routine 04/12/2023 documented in this encounter Results * Mammography (04/12/2023) Mammogram Bi-rads 1 Anatomical Region Laterality Modality Other Narrative 04/12/2023 Recommended routine annual follow up at 40 Historical Provider HEALTH MAINTENANCE Final Result documented in this encounter Visit Diagnoses Not on filedocumented in this encounter Additional Health Concerns Assessment Noted Time PHQ-9 Depression Total Score: 1 03/25/20 23 2:00 PM EDT documented as of this encounter Care Teams Regional Project Manager Relationship Specialty Start Date End Date Rina Ferrell MD [address] [place] [address] PCP - General Internal Medicine 03/04/23 Carol Rich RN [address] [place] [address] Animal Caregiver 11/11/23 01/10/24 Daniel De Leon Community Health Worker 11/11/2301/09 documented as of this encounter
[2024-11-29 14:06] LABS: Alanine Aminotransferase 18 U/L (0-31); Albumin Level 4.6 g/dL (3.5-5.0); Alkaline Phosphatase 61 U/L (39-117); Anion Gap 11 (12-20); Aspartate Amino Transferase 28 U/L (5-31); Bilirubin Total 0.4 mg/dL (0.0-1.0); Blood Urea Nitrogen 11 mg/dL (9-16); Calcium 9.2 mg/dL (8.4-10.2); Carbon Dioxide 24 mmol/L (22-29); Chloride 108 mmol/L (96-108); Estimated Glomerular Filt Rate > 60; Glucose Random 71 mg/dL (60-115); Potassium 3.8 mmol/L (3.3-5.1); Sodium 139 mmol/L (135-145); Total Protein 7.1 g/dL (6.5-8.0)
[2024-11-29 14:12] LABS: TSH reflex Free T4 0.65 uIU/mL (0.32-4.0)
[2024-11-29 15:16] LABS: CT PCR NOT DETECTED (Not Detect.); NG PCR NOT DETECTED (Not Detect.)
[2024-11-30 08:28] LABS: Syphilis Screen Nonreactive (Nonreactive)
[2024-11-30 08:49] LABS: HBS Num1 109.31 mIU/mL (0-7.99); HBc Num1 0.04 S/CO (0.00-0.79); HBsAGNum1 0.32 S/CO (0.00-0.99); HIV AB/AG Nonreactive (Nonreactive); HIV Num 1 0.08 S/CO (0.00-0.99); Hepatitis B Core Antibody Nonreactive (Nonreactive); Hepatitis B Surface Antigen Negative (Negative); ~Hepatitis B Surface Antibody REACTIVE (Nonreactive); ~Hepatitis C Antibody Nonreactive (Nonreactive)
== END 2024-11-29 11:55 | disposition home or self-care (01) ==
LOC: HO.HHCL 11:54
PROVIDERS: PCP Student in an Organized Health Care Education/Training Program; Visit Provider Student in an Organized Health Care Education/Training Program
DX: Z00.00 Encounter for general adult medical examination without abnormal findings (principal); Z13.1 Encounter for screening for diabetes mellitus; Z13.0 Encounter for screening for diseases of the blood and blood-forming organs and certain disorders involving the immune mechanism; Z13.29 Encounter for screening for other suspected endocrine disorder
CPT/HCPCS: 80053; 83036; 84443; 85027; 86704; 86706; 86780; 86803; 87340; 87389; 87491; 87591

== ENCOUNTER 2025-03-28 22:01 | Emergency (ER) | payer OTHER, SELFPAY ==
[2025-03-28 22:12] VITALS: BP 104/69; PULSE 69; RESP 18; TEMP 36.6; O2SAT 98; BMI 19.4
[2025-03-28 22:56] LABS: MANUAL DIFF FLAG NO
[2025-03-28 22:57] LABS: Hematocrit 39.4 % (37.0-47.0); Hemoglobin 13.4 g/dl (12.0-16.0); Imm Gran Abs Auto 0.03 X10*3/uL (0.00-0.03); Imm Gran Pct Auto 0.3 % (0.0-0.4); Lymphocytes Absolute Auto 2.2 X10*3/uL (1.2-4.9); Mean Corpuscular HGB Conc 34.0 g/dl (31.0-35.0); Mean Corpuscular Hemoglobin 29.7 pg (27.0-33.0); Mean Corpuscular Volume 87.4 fL (80.0-98.0); NRBC Abs Auto 0.000 X10*3/uL (0.0-0.012); NRBC Pct Auto 0.0 /100WBC (0.0-0.2); Platelet Count 331 X10*3/uL (160-400); Red Blood Count 4.51 X10*6/uL (4.20-5.50); White Blood Count 9.0 X10*3/uL (4.8-10.8)
[2025-03-28 22:59] LABS: Appearance Urine Clear; Glucose Urine UA Negative (Negative); PH 6.0 (5.0-9.0); Specific Gravity - Urine <= 1.005 (1.005-1.025); UPreg QC Valid YES
[2025-03-28 23:10] LABS: Alanine Aminotransferase 15 U/L (0-31); Albumin Level 4.8 g/dL (3.5-5.0); Alkaline Phosphatase 68 U/L (39-117); Anion Gap 12 (12-20); Aspartate Amino Transferase 25 U/L (5-31); Blood Urea Nitrogen 10 mg/dL (9-16); Calcium 9.4 mg/dL (8.4-10.2); Carbon Dioxide 25 mmol/L (22-29); Chloride 107 mmol/L (96-108); Creatinine Clr Calc Pharmacy 86.9; Estimated Glomerular Filt Rate > 60; Lipase 43 U/L (8-78); Magnesium 2.0 mg/dL (1.6-2.6); Potassium 3.9 mmol/L (3.3-5.1); Sodium 140 mmol/L (135-145); Total Protein 7.1 g/dL (6.5-8.0)
--- NOTE | 2025-03-29 00:40 | ED.GENADULT ---
HPI - General Adult General Chief complaint: Abdominal Pain Stated complaint: abdominal pain Time Seen by Provider: 03/29/25 00:15 Source: patient Mode of arrival: ambulatory Limitations: no limitations History of Present Illness ED Provider: [facility] narrative: 29-year-old woman otherwise healthy works as a teacher in middle school, has had GI symptoms for the past 3- 4 days, missing work, currently feels better, had cough, nausea vomiting diarrhea and that has since resolved no vaginal bleeding or discharge, no abdominal pain at this time. Related Data Previous Rx's ?Medication ?Instructions ?Recorded acetaminophen 500 mg tablet 500 mg PO Q6H PRN fever or pain 12/02/23 (Tylenol Extra Strength) #14 tabs cyclobenzaprine 5 mg tablet 5 mg PO Q8H PRN pain (scale score 12/02/23 7-10) 5 days #14 tabs lidocaine 5 % topical patch 1 patch topical DAILY PRN pain #30 12/02/23 (Lidoderm) ea naproxen 500 mg tablet 500 mg PO BID PRN pain 10 days #20 12/02/23 tabs bpqywejlxaaql-TZ-wonjukotphv 5 10 ml PO Q4H PRN cough #473 mL 02/16/24 mg-10 mg-100 mg/5 mL oral liquid codeine 10 mg-guaifenesin 100 mg/5 10 ml PO Q6H PRN cough #237 mL 08/20/24 mL oral liquid oseltamivir 75 mg capsule (Tamiflu) 75 mg PO BID 5 days #10 caps 08/20/24 Allergies Allergy/AdvReac Type Severity Reaction Status Date / Time No Known Allergies Allergy Verified 03/28/25 22:18 Review of Systems Constitutional: Constitutional: Reports as per [facility] Social History Social History Alcohol intake: never Advance Directives: No Advance Directives Information Provided: Yes Do you have a plan to hurt others: No Plan Physical Exam ED Exam Exam: General: ?Appears of stated age ? ?CV: RRR, no obvious murmurs appreciated ? ?Resp: ?No wheezing rales rhonchi no stridor moving air well ? Abd: ?Bowel sounds are present, no tenderness no rebound no rigidity ? ?MSK: FROM, strength 5/5 all extremities ? Skin: Warm, dry, intact, ? ?Neuro: ?Alert and oriented x3, moving upper and lower extremities symmetrically, no obvious facial asymmetry noted, cranial nerves 2-12 intact Vital Signs: Vital Signs - 24 hr 03/28/25 22:12 Temperature 98 F Pulse Rate 69 Respiratory Rate 18 Blood Pressure 104/69 Pulse Oximetry 98 Oxygen Delivery Method Room Air BMI result Body Mass Index 19.4 Medical Decision Making Medical Decision Making [facility] Narrative: 12:42 AM 03/29/2025 (Dr. Daniel Page): Overall well-appearing woman, benign abdominal exam, no fevers no tachycardia, blood work without any evidence electrolyte derangements dehydration urine without evidence for dehydration no UTI, she is not , did not feel further imaging such as ultrasound or CAT scan is indicated, lungs are clear did not feel imaging such as chest x-ray is indicated to rule out pneumonia Differential Diagnosis Differential Diagnoses: The differential diagnosis associated with the presentation includes (Dehydration, gastroenteritis, , ovarian pathology, pneumonia) Lab Data [facility] Lab Attestation statement: I reviewed the patient's lab results. 03/28/25 22:50 03/28/25 22:50 Labs: Lab Results 03/28/25 Range/Units 22:50 WBC 9.0 (4.8-10.8) X10*3/uL RBC 4.51 (4.20-5.50) X10*6/uL Hgb 13.4 (12.0-16.0) g/dl Hct 39.4 (37.0-47.0) % MCV 87.4 (80.0-98.0) fL MCH 29.7 (27.0-33.0) pg MCHC 34.0 (31.0-35.0) g/dl RDW 13.1 (11.0-16.0) % Plt Count 331 (160-400) X10*3/uL MPV 9.8 (9.4-12.3) fL Immature Gran % (Auto) 0.3 (0.0-0.4) % Neut % (Auto) 64.7 (45-73) % Lymph % (Auto) 24.1 (20-40) % [place] % (Auto) 8.6 (2-11) % Eos % (Auto) 1.5 (0-4) % Baso % (Auto) 0.8 (0-2) % Lymph # (Auto) 2.2 (1.2-4.9) X10*3/uL [place] # (Auto) 0.8 (0.1-1.2) X10*3/uL Eos # (Auto) 0.1 (0.0-0.4) X10*3/uL Baso # (Auto) 0.1 (0.0-0.2) X10*3/uL Abs Immat Gran (auto) 0.03 (0.00-0.03) X10*3/uL Absolute Neuts (auto) 5.8 (2.0-8.3) x10*3/uL Absolute Nucleated RBC 0.000 (0.0-0.012) X10*3/uL Nucleated RBC % (auto) 0.0 (0.0-0.2) /100WBC Sodium 140 (135-145) mmol/L Potassium 3.9 (3.3-5.1) mmol/L Chloride 107 (96-108) mmol/L Carbon Dioxide 25 (22-29) mmol/L Anion Gap 12 (12-20) BUN 10 (9-16) mg/dL Creatinine 0.73 (0.5-1.4) mg/dL Estim Creat Clear Calc 86.9 Estimated GFR > 60 Random Glucose 132 H (60-115) mg/dL Calcium 9.4 (8.4-10.2) mg/dL Magnesium 2.0 (1.6-2.6) mg/dL Total Bilirubin 0.3 (0.0-1.0) mg/dL AST 25 (5-31) U/L ALT 15 (0-31) U/L Alkaline Phosphatase 68 (39-117) U/L Total Protein 7.1 (6.5-8.0) g/dL Albumin 4.8 (3.5-5.0) g/dL Lipase 43 (8-78) U/L Urine Color Yellow Urine Appearance Clear Urine pH 6.0 (5.0-9.0) Ur Specific [place] <= 1.005 (1.005-1.025) Urine Protein Negative (Neg-Trace) mg/dL Urine Glucose (UA) Negative (Negative) mg/dL Urine Ketones Negative (Negative) mg/dL Urine Blood Negative (Negative) Urine Nitrite Negative (Negative) Ur Leukocyte Esterase Negative (Negative) Urine Test NEGATIVE (NEGATIVE) Tests considered The following testing was considered but not selected: CT abdomen pelvis Prescription Management I considered prescription management with: Antibiotic Discharge Plan Discharge Clinical Impression: Generalized abdominal cramps, Nausea alone Patient Disposition: Home, Self-Care Additional Instructions: See provided note for work, your vital signs has been reassuring, you have no fevers, your blood work urinalysis without any evidence of dehydration or infection Follow up with the PCP Any other issues or concerns come back to the ER Prescriptions: No Action vaeoczaeixkxt-JX-hukydidkyud 5-10-100 mg/5 mL liquid 10 ml PO Q4H PRN (Reason: cough) Qty: 473 0RF acetaminophen [Tylenol Extra Strength] 500 mg tablet 500 mg PO Q6H PRN (Reason: fever or pain) Qty: 14 0RF naproxen 500 mg tablet 500 mg PO BID PRN (Reason: pain) 10 Days Qty: 20 0RF cyclobenzaprine 5 mg tablet 5 mg PO Q8H PRN (Reason: pain (scale score 7-10)) 5 Days Qty: 14 0RF lidocaine [Lidoderm] 5 % adhesive patch,medicated 1 patch topical DAILY MDD remove after 12 hours PRN (Reason: pain) Qty: 30 0RF Rx Instructions: leave on most painful area for up to 12 hrs oseltamivir [Tamiflu] 75 mg capsule 75 mg PO BID 5 Days Qty: 10 0RF codeine-guaifenesin 10-100 mg/5 mL liquid 10 ml PO Q6H PRN (Reason: cough) Qty: 237 0RF Stand Alone Forms: Work/School Release Print Language: Bengali
[2025-03-29 00:49] VITALS: BP 111/70; PULSE 68; RESP 16; TEMP 36.9; O2SAT 98
--- NOTE | 2025-03-29 00:53 | PC.NURSE ---
reviewed discharge instruction with pt. pt verbalized understanding no sign of distress upon discharge.
[2025-03-29 00:54] VITALS: BP 111/70; PULSE 68; RESP 16; TEMP 36.9; O2SAT 98
== END 2025-03-29 00:55 | disposition home or self-care (01) ==
PROVIDERS: Emergency Provider Emergency Medicine; PCP Student in an Organized Health Care Education/Training Program
DX: R25.2 Cramp and spasm (principal); R11.0 Nausea; R05.9 Cough, unspecified; R11.2 Nausea with vomiting, unspecified; R19.7 Diarrhea, unspecified
CPT/HCPCS: 36415; 80053; 81003; 81025; 83690; 83735; 85025; 99283; 99284